=== PATIENT | female | born 1935 | race Two or more races ===

== ENCOUNTER → 2016-11-16 | Outpatient (CLI) | payer MEDICARE ==
[~2016-11-16] MED LIST: ASPI-482 PO; FELO10TA PO; IOHEXOL 180 MG/ML 10 ML VIAL. ONE; ISOS30TA4 PO; LATA2.5D3 EACHEYE; LEVO5TAB2 PO; LOSA1TAB17 PO; METO25TA9 PO; NAPR220C4 PO; POTA10TA5 PO; RANI150C PO; TIMO5DRO5 RIGHTEYE; ZOLP5TAB4 PO; methylPREDNISolone ACETATE 40 MG/ML VIAL. ONE; methylPREDNISolone ACETATE 80 MG/ML VIAL. ONE
--- NOTE | 2016-11-17 03:20 | PAIN ---
DATE OF SERVICE: 11/16/2016 INITIAL CONSULTATION CHIEF COMPLAINT: Upper back and left shoulder pain. HISTORY OF PRESENT ILLNESS: This is an 81-year-old female who presents with history of pain for many years, not a result of any specific injury or action that she is aware of, but increasing pain in the base of the neck and left shoulder, also left upper back radiating to the left side as well in the flank about the upper chest on the left side. The patient reports it is constant, sharp, stabbing, shooting, throbbing with intermittent in intensity, but always present, changes during the day with activity, worse with standing, walking, changing, twisting, using her upper extremities, also turning her neck far to the left side causes increased pain in the base of the neck and shoulder on the left side as well. The patient reports no specific symptoms on the right side, but also pain ____ in the low back which is a separate issue. The patient reports it wakes her from sleep, but only very rarely, does not affect her bowel or bladder control or ability to walk, but it is becoming more noticeable and uncomfortable with daily activities such as changing clothes, lifting items, cooking, standing and washing, etc. The patient has tried physical therapy and is currently enrolled in that, also doing some exercises at home which she feels did help by about 20%. She has had some epidural injections in 2008 or 2009 in ____, which she felt were quite helpful for her pain as well. The patient did have an MRI scan of the cervical and thoracic spine, cervical spine showing some spinal stenosis at T1-T2 with extrusion extending slightly above and below the intervertebral disk space, also with left lateral recess stenosis at this level, mild cord edema difficult to entirely exclude, also some mild spinal stenosis at C3 and C4. The patient rates her disability rate from 0 to 10, 10 being the worst, as 6 with family and home responsibilities and self-care, 7 with recreation and social activity, occupation and life support activities. The patient reports no radiation in the upper extremities and no weakness in the upper extremities related to the pain as well bilaterally. PAST MEDICAL HISTORY: Significant for hypertension, glaucoma, cataracts, pacemaker with a second-degree AV block, gastroesophageal reflux, arthritis. PREVIOUS SURGERIES: Include bilateral cataract extractions, pacemaker placement in 2010, right knee scope in 2000, benign tumor of the thigh removed in 2008. CURRENT MEDICATIONS: Include naproxen, timolol eyedrops, latanoprost, daily baby aspirin, Zantac, isosorbide, felodipine, zolpidem, levocetirizine, potassium, losartan and metoprolol. ALLERGIES: The patient is allergic to latex, also taking atgq-fxq-jfydywe Naprosyn. FAMILY HISTORY: Significant for no major medical problems or conditions that she is aware of. SOCIAL HISTORY: The patient does not smoke, does not use alcohol. She is , lives with her spouse in [place], [place]. REVIEW OF SYSTEMS: The patient's review of systems is positive for those items mentioned in the history of present illness. All systems reviewed and otherwise negative. It is complete, full and well documented on the patient's chart. PHYSICAL EXAMINATION: VITAL SIGNS: The patient's blood pressure is 170/75, pulse is 67, respirations 20, temperature is 98.2 degrees Fahrenheit, height is 5 feet 2 inches and weight is 114 pounds. GENERAL: The patient is awake, alert, oriented, appropriate, very pleasant demeanor. HEENT: Shows normocephalic, atraumatic. Extraocular movements are intact and symmetrical. The patient wears eye glasses. Oral cavity shows mucous membranes are moist and pink. Dentition is intact. NECK: Shows anterior throat supple without palpable lymphadenopathy noted. Swallow reflex is symmetrical. CHEST: Shows normal on inspection. Breath sounds are clear to auscultation bilaterally. HEART: Shows S1 and S2 clear. No murmurs auscultated. ABDOMEN: Soft, nontender, nondistended. No palpable organomegaly is noted. No rebound or guarding demonstrated. BACK: The patient's back shows spine grossly in midline, normal-appearing cervical lordotic curvature, thoracic kyphotic curvature and lumbar lordotic curvature. No previous bruises, lesions, rashes or scars are noted. Cervical paraspinous muscle shows some moderate tenderness with palpation only in the inferior aspect of the cervical paraspinous muscles, more on the left than the right, appears roughly symmetrical on inspection. No atrophy, hypertrophy, no radiation of pain with palpation. No trigger points in the trapezius musculature. Lateral trapezius is slightly more tender on the left than the right, but again symmetrical with comparison of right to left. Upper back shows normal thoracic kyphosis. The thoracic paraspinous muscle shows some moderate tenderness to palpation in the left rhomboid distribution of paraspinous muscles in the thoracic distribution, also in the superior and infrascapular regions moderate tenderness diffusely once again and significantly more tender in the inferior aspect of the scapular region in the posterior trapezius musculature on the left and none on the right. EXTREMITIES: The patient's upper extremities show deep tendon reflexes at 2+ in the biceps and triceps tendons. Motor exam is strong with short range air defense artillery strength rated at 5/5 as is biceps and triceps flexion. No deficits noted. Peripheral pulses are 2+, radial distribution. No peripheral edema is noted. No clubbing, no cyanosis. Upper extremities are warm and dry to touch, equal in color and appearance. Shoulder shrug is strong and intact with some minor pain reported with resistance on the left side but not the right without loss of strength. Abduction of the shoulder to 90 degrees, also tenderness in the posterior shoulder with resistance on the left side, but not the right, reaching above 90 degrees causes pain in the base of the shoulder and the base of the neck on the left side. IMPRESSION: 1. This is an 81-year-old female with a long history of many years of pain in the base of the neck, left shoulder and left upper back. 2. MRI scan as noted. 3. History of arthritis. 4. Hypertension. 5. AV block with pacemaker placement. PLAN: Options were discussed with the patient and the patient's son who accompanies her to the visit today. We discussed continued physical therapies, medication management and interventional techniques. She would like to pursue interventional techniques. We discussed a thoracic epidural steroid injection at the T1-T2 level using description as well as anatomical models to describe the procedure. The patient would like to proceed with this. Risks were then discussed including, but not limited to bleeding, infection, possibility of epidural hematoma, subsequent neurological compromise, dural puncture, headaches, spinal cord and/or nerve damage, side effects of steroid medication and poor results regarding pain control. The patient understands and wishes to proceed. The patient will return to the clinic in approximately 2 weeks for followup, was counseled on return appointment, activity level and side effects to be aware of. DIAGNOSIS: Thoracic radiculopathy with thoracic spinal stenosis. PROCEDURE: Thoracic epidural steroid injection, translaminar approach at the T1-T2 level using fluoroscopic guidance under sterile prep and drape using local anesthesia. Medications injected 120 mg of Depo-Medrol plus 5 mL of preservative-free normal saline and 2 mL of Isovue contrast. Condition at discharge is stable. The patient tolerated the procedure well, had no complications. SHADE SANCHEZ MD DR: SPARKLE/jorge JOB#: [id number] / [id number]
== END ==
LOC: PNCL 13:31
PROVIDERS: ATTEND Anesthesiology
DX: M48.04 Spinal stenosis, thoracic region (principal); M54.14 Radiculopathy, thoracic region; I10 Essential (primary) hypertension; M19.90 Unspecified osteoarthritis, unspecified site
CPT/HCPCS: 62321; J1030; J1040

== ENCOUNTER → 2016-12-08 | Outpatient (CLI) | payer MEDICARE ==
[~2016-12-08] MED LIST changes: +BUPIVACAINE MPF 0.25% 10 ML VIAL. ONE; -IOHEXOL 180 MG/ML 10 ML VIAL. ONE; -methylPREDNISolone ACETATE 80 MG/ML VIAL. ONE
--- NOTE | 2016-12-09 22:42 | PAIN ---
DATE OF SERVICE: 12/08/2016 DIAGNOSES: 1. Thoracic radiculopathy with thoracic spinal stenosis. 2. Myofascial pain. HISTORY OF PRESENT ILLNESS: The patient is an 81-year-old female who returns for followup status post thoracic epidural steroid injection x 1 on 07/17/2016, did very well with 90% improvement. The patient reports doing much better in the upper back, neck, and into her shoulder as well on the left side, the patient was very pleased with the progress, was increasing her activity with greater ease and comfort, sleeping well at night, not having any new motor or sensory deficits, no other complaints. The patient is very pleased, has chief complaint today of pain in the low back on the left side, which has been present for some time, but is much more noticeable now that her upper back and shoulders are feeling much better. The patient reports a stabbing pain like a digging knife-like pain in the left mid and low back. The patient reports it as 2 on a scale of 10; however, reports no new motor or sensory deficits, no radiation into the lower extremities or other complaints. The patient reports it is worse with standing and walking, again does not awaken her from sleep, but is becoming more noticeable now that her upper back and left shoulder are feeling much better. PHYSICAL EXAMINATION: VITAL SIGNS: Today, the patient's blood pressure is 147/76, pulse 65, respirations 16, temperature is 98.1 degrees Fahrenheit, and weight is 111 pounds. GENERAL: The patient is awake, alert, oriented, appropriate, very pleasant demeanor. HEENT: Head shows normocephalic, atraumatic. Extraocular movements are intact and symmetrical. The patient's oral cavity shows mucous membranes are moist and pink. Dentition is intact. NECK: Shows anterior throat supple without palpable lymphadenopathy noted. Swallow reflex is symmetrical. CHEST: Shows normal on inspection. Breath sounds are clear to auscultation bilaterally. HEART: Shows S1 and S2 clear. ABDOMEN: Soft, nontender, nondistended. BACK: Shows spine grossly in midline. Very minimal tenderness with palpation in the inferior aspect of the cervical paraspinous musculature as well as superior medial and lateral trapezius, both on the left and the right. The patient shows good rotational motion into the upper cervical and thoracic spines, both lateral rotation, extension and flexion without difficulty. Examination of the patient's lumbar spine and lower thoracic distribution shows some mild hypertrophy of the paraspinous musculature on the left compared to the right. From the low thoracic distribution into the upper lumbar distribution on the left side, very firm, very tender rope-like musculature in the paraspinous distribution on the left only. Right side is supple, firm, but nontender. There are significant tender trigger points on the left side in the low thoracic and the upper lumbar, very tender to palpation, but without significant radiation. EXTREMITIES: The patient's upper extremities show deep tendon reflexes 2+ in the biceps and triceps tendons. Motor exam is strong with butcher all round strength rated at 5/5 at is biceps and triceps flexion. Options were discussed with the patient. The patient's old chart was reviewed as her current medication regimen updated, current review of systems updated today as well. We will proceed with trigger point injections of the left thoracic paraspinous musculature and the lumbar paraspinous musculature. Risks were discussed including but not limited to bleeding, infection, possibility of intravascular injection sequelae, pneumothorax, side effects of steroid medications, spread of local anesthetic and numbness as well as poor results regarding pain control. The patient understands and wishes to proceed. The patient will return to clinic in approximately 2 weeks or as necessary, would like to call for next appointment if she is doing much better. Also, encouraged the patient to maintain stretching and strengthening exercises, heat application to the areas of the tight musculature on the left side, as well as side effects to be aware of with the injection today. The patient understands and agrees. DIAGNOSES: 1. Myofascial pain. 2. Thoracic radiculopathy with thoracic spinal stenosis. PROCEDURE: Trigger point injections of the left thoracic paraspinous musculature and left lumbar paraspinous musculature using a sterile prep and drape. MEDICATIONS INJECTED: Total of 40 mg Depo-Medrol plus 4 mL of 0.25% bupivacaine. CONDITION AT DISCHARGE: Stable. The patient tolerated procedure well, had no complications. SHADE SANCHEZ MD DR: SPARKLE/jorge JOB#: [id number] / [id number]
== END | disposition home or self-care (01) ==
LOC: PNCL 08:08
PROVIDERS: ATTEND Anesthesiology
DX: M48.04 Spinal stenosis, thoracic region (principal); M54.14 Radiculopathy, thoracic region
CPT/HCPCS: 20552; J1030; J3490

== ENCOUNTER → 2018-07-03 | Outpatient (CLI) | payer MEDICARE ==
[~2018-07-03] MED LIST changes: -BUPIVACAINE MPF 0.25% 10 ML VIAL. ONE; -LOSA1TAB17 PO; +LOSA1TAB22 PO; +METO-239 PO; -METO25TA9 PO; +POTA10TA12 PO; -POTA10TA5 PO; -ZOLP5TAB4 PO; +ZOLP5TAB5 PO; -methylPREDNISolone ACETATE 40 MG/ML VIAL. ONE
--- NOTE | 2018-07-03 11:21 | CARD ---
MR#: [id number] Date of Study: 07/03/2018 Ordering Physician: LOUISE YOUNG, Referring Physician: LOUISE YOUNG, Andrew: SAMEERA Uriarte APPROVED REPORT EXAM: Two-dimensional and M-mode echocardiogram with Doppler and color Doppler. Other Information Quality : GoodHR: 65bpm INDICATION AV Block 2nd Degree RISK FACTORS Hypertension 2D DIMENSIONS Left Atrium(2D)2.2 (1.6-4.0cm)IVSd1.0 (0.7-1.1cm) Aortic Root(2D)2.4 (2.0-3.7cm)LVDd4.2 (3.9-5.9cm) LVOT Diameter2.0 (1.8-2.4cm)PWd1.1 (0.7-1.1cm) LVDs2.9 (2.5-4.0cm)FS (%) 29.6 % SV44.3 mlLVEF(%)57.1 (>50%) Aortic Valve AoV Peak Moisés.131.0cm/sAoV VTI32.5cm AO Peak GR.6.9mmHgLVOT Peak Moisés.80.7cm/s LVOT VTI 21.74cmAO Mean GR.4mmHg JUAN A (VMAX)1.19mq6KTO (VTI)2.18cm2 AI P 1/2 Hndg743pi Mitral Valve MV E Cqlhtmyt34.0cm/sMV E Peak Gr.94mmHg MV DECEL [id number] A Rymxfmdg94.8cm/s MV PUA45kkL/A Ratio1.0 MVA (PHT)3.63cm2 TDI E/Lateral E'10.7E/Medial E'16.5 Pulmonary Valve PV Peak Kpohshld59.9cm/sPV Peak Grad.3mmHg Tricuspid Valve TR P. Tskmifob868dk/sTR Peak Gr.33mmHg LEFT VENTRICLE The left ventricle is normal size. There is normal left ventricular wall thickness. Proximal septal t hickening is noted. The left ventricular systolic function is normal and the ejection fraction is wit hin normal range. EF 55% There is normal LV segmental wall motion. The left ventricular diastolic fun ction and filling is normal for age. RIGHT VENTRICLE The right ventricle is normal size. The right ventricular systolic function is normal. There is a pac ing lead noted in the RA/RV. ATRIA The left atrium size is normal. The right atrium size is normal. The interatrial septum is intact wit h no evidence for an atrial septal defect or patent foramen ovale as noted on 2-D or Doppler imaging. AORTIC VALVE The aortic valve is thickened but opens well. Doppler and Color Flow revealed trace aortic regurgitat ion. There is no significant aortic valvular stenosis. There is no aortic valvular vegetation. MITRAL VALVE The mitral valve is thickened but opens well. There is no evidence of mitral valve prolapse. There is no mitral valve stenosis. Doppler and Color-flow revealed mild mitral regurgitation. TRICUSPID VALVE The tricuspid valve is not well visualized. Doppler and Color Flow revealed mild tricuspid regurgitat ion. There is no tricuspid valve prolapse or vegetation. There is no tricuspid valve stenosis. PULMONIC VALVE The pulmonic valve is not well visualized. Doppler and Color Flow revealed trace to mild pulmonic joseph vular regurgitation. There is no pulmonic valvular stenosis. GREAT VESSELS The aortic root is normal in size. The IVC is normal in size and collapses >50% with inspiration. PERICARDIAL EFFUSION There is no pleural effusion. There is no evidence of significant pericardial effusion. Critical Notification Critical Value: No <Conclusion> The left ventricular systolic function is normal and the ejection fraction is within normal range. EF 55% There is normal LV segmental wall motion. There is a pacing lead noted in the RA/RV. Signed by : Irineo Hennessy, Electronically Approved : 07/03/2018 11:20:49
== END | disposition home or self-care (01) ==
LOC: ECHO 10:02
PROVIDERS: ATTEND Internal Medicine Cardiovascular Disease
DX: I44.1 Atrioventricular block, second degree (principal); I08.1 Rheumatic disorders of both mitral and tricuspid valves; I10 Essential (primary) hypertension; I25.10 Atherosclerotic heart disease of native coronary artery without angina pectoris
CPT/HCPCS: 93306

== ENCOUNTER → 2019-11-05 | Outpatient (CLI) | payer MEDICARE ==
[~2019-11-05] MED LIST changes: -FELO10TA PO; +FELO10TA4 PO
--- NOTE | 2019-11-05 10:06 | CARD ---
MR#: [id number] Date of Study: 11/05/2019 Ordering Physician: LOUISE YOUNG, Referring Physician: LOUISE YOUNG, Tech: Norma Abadton APPROVED REPORT EXAM: Two-dimensional and M-mode echocardiogram with Doppler and color Doppler. Other Information Quality : AverageHR: 61bpm Rhythm : Pacemaker INDICATION Arrhythmia Surgery/Intervention Pacemaker: Date: 2011 RISK FACTORS Hypertension 2D DIMENSIONS RVDd2.5 (2.9-3.5cm)Left Atrium(2D)2.7 (1.6-4.0cm) IVSd0.9 (0.7-1.1cm)Aortic Root(2D)2.3 (2.0-3.7cm) LVDd4.1 (3.9-5.9cm)LVOT Diameter1.8 (1.8-2.4cm) PWd0.8 (0.7-1.1cm)LVDs2.5 (2.5-4.0cm) FS (%) 39.3 %SV53.4 ml LVEF(%)70.2 (>50%) Aortic Valve AoV Peak Moisés.129.9cm/sAoV VTI29.6cm AO Peak GR.6.7mmHgLVOT Peak Moisés.79.7cm/s LVOT VTI 21.43cmAO Mean GR.4mmHg JUAN A (VMAX)1.01zm6LOV (VTI)1.94cm2 AI P 1/2 Zbze517vf Mitral Valve MV E Poscbxig12.4cm/sMV E Peak Gr.76mmHg MV DECEL AVSX070ibIA A Dguhxpdq61.7cm/s MV E Mean Gr.2mmHgMV YKX90hk E/A Ratio1.2MVA (PHT)3.90cm2 TDI E/Lateral E'13.3E/Medial E'16.4 Pulmonary Valve PV Peak Nyylbylf38.1cm/sPV Peak Grad.3mmHg Tricuspid Valve TR P. Qtrerlge430ok/sRAP UNPDONHR5smAa TR Peak Gr.53vyDlYWFE99zsFx Pulmonary Vein S1 Gzgzapuw05.0cm/sD2 Kjtpygyc62.2cm/s PVa rchdbnjp549vbmj LEFT VENTRICLE The left ventricle is normal size. There is normal left ventricular wall thickness. The left ventricu lar systolic function is normal. The Ejection Fraction is 55-60%. There is normal LV segmental wall m otion. Transmitral Doppler flow pattern is Grade II-pseudonormal filling dynamics. RIGHT VENTRICLE The right ventricle is normal size. There is normal right ventricular wall thickness. The right ventr icular systolic function is normal. There is a pacemaker lead in the right ventricle. ATRIA The left atrium size is normal. The right atrium size is normal. There is a pacemaker lead seen in th e right atrium. The interatrial septum is intact with no evidence for an atrial septal defect or doll nt foramen ovale as noted on 2-D or Doppler imaging. AORTIC VALVE The aortic valve is thickened but opens well. Doppler and Color Flow revealed mild aortic regurgitati on. There is no significant aortic valvular stenosis. MITRAL VALVE The mitral valve is normal in structure and function. There is no evidence of mitral valve prolapse. There is no mitral valve stenosis. Doppler and Color-flow revealed trace to mild mitral regurgitation . TRICUSPID VALVE The tricuspid valve is normal in structure and function. Doppler and Color Flow revealed mild tricusp id regurgitation with an estimated PAP of 32 mmHg. There is no tricuspid valve stenosis. PULMONIC VALVE The pulmonic valve is not well visualized. Doppler and Color Flow revealed trace pulmonic valvular re gurgitation. GREAT VESSELS The aortic root is normal in size. The IVC is normal in size and collapses >50% with inspiration. PERICARDIAL EFFUSION There is no evidence of significant pericardial effusion. Critical Notification Critical Value: No <Conclusion> The left ventricular systolic function is normal. The Ejection Fraction is 55-60%. There is normal LV segmental wall motion. There is a pacemaker lead in the right atrium and ventricle. Mild aortic regurgitation. Trace to mild mitral regurgitation. Mild tricuspid regurgitation with an estimated PAP of 32 mmHg. There is no evidence of significant pericardial effusion. Signed by : Louise Young, Electronically Approved : 11/05/2019 10:06:19
== END | disposition home or self-care (01) ==
LOC: ECHO 08:19
PROVIDERS: ATTEND Internal Medicine Cardiovascular Disease
DX: I08.3 Combined rheumatic disorders of mitral, aortic and tricuspid valves (principal); I44.1 Atrioventricular block, second degree
CPT/HCPCS: 93306

== ENCOUNTER → 2020-11-04 | Outpatient (CLI) | payer MEDICARE ==
[~2020-11-04] MED LIST changes: -ISOS30TA4 PO; +ISOS30TA68 PO
--- NOTE | 2020-11-11 16:18 | CARD ---
MR#: [id number] Date of Study: 11/04/2020 Ordering Physician: LOUISE YOUNG, Referring Physician: LOUISE YOUNG Tech: Katelyn French [facility] APPROVED REPORT EXAM: Two-dimensional and M-mode echocardiogram with Doppler and color Doppler. Other Information Quality : GoodHR: 66bpm Rhythm : NSR INDICATION Chest Pain Surgery/Intervention ICD/Pacemaker: 2D DIMENSIONS RVDd2.7 (2.9-3.5cm)Left Atrium(2D)2.7 (1.6-4.0cm) IVSd0.8 (0.7-1.1cm)Aortic Root(2D)2.4 (2.0-3.7cm) LVDd3.7 (3.9-5.9cm)LVOT Diameter2.0 (1.8-2.4cm) PWd0.6 (0.7-1.1cm)LVDs1.5 (2.5-4.0cm) FS (%) 60.0 %SV53.9 ml LVEF(%)89.9 (>50%) Aortic Valve AoV Peak Moisés.157.1cm/sAoV VTI36.9cm AO Peak GR.9.9mmHgLVOT Peak Moisés.96.8cm/s LVOT VTI 24.55cmAO Mean GR.6mmHg JUAN A (VMAX)1.19xy5IFM (VTI)2.12cm2 Mitral Valve MV E Nawneaun855.4cm/sMV DECEL GLWS073ub MV SXU22eeSUD (PHT)3.59cm2 TDI E/Lateral E'11.8E/Medial E'15.2 Pulmonary Valve PV Peak Hbgaudht223.2cm/sPV Peak Grad.5mmHg Tricuspid Valve TR P. Scfgwsxc598lz/sTR Peak Gr.35mmHg LEFT VENTRICLE The left ventricle is normal size. There is mild concentric left ventricular hypertrophy. The left ve ntricular systolic function is normal and the ejection fraction is within normal range. Estimated eje ction fraction 60-65%. There is normal LV segmental wall motion. The left ventricular diastolic funct ion and filling is normal for age. RIGHT VENTRICLE The right ventricle is normal size. There is normal right ventricular wall thickness. The right ventr icular systolic function is normal. ATRIA The left atrium size is normal. The right atrium size is normal. The interatrial septum is intact wit h no evidence for an atrial septal defect or patent foramen ovale as noted on 2-D or Doppler imaging. AORTIC VALVE The aortic valve is normal in structure and function. Doppler and Color Flow revealed trace aortic re gurgitation. There is no significant aortic valvular stenosis. MITRAL VALVE The mitral valve is normal in structure and function. There is no evidence of mitral valve prolapse. There is no mitral valve stenosis. Doppler and Color-flow revealed mild regurgitation. TRICUSPID VALVE The tricuspid valve is normal in structure and function. Doppler and Color Flow revealed mild tricusp id regurgitation. Estimated 37 mmHg. There is no tricuspid valve stenosis. PULMONIC VALVE Doppler and Color Flow revealed mild pulmonic valvular regurgitation. There is no pulmonic valvular s tenosis. GREAT VESSELS The aortic root is normal in size. The ascending aorta is normal in size. The IVC is normal in size a nd collapses >50% with inspiration. PERICARDIAL EFFUSION There is no evidence of significant pericardial effusion. Critical Notification Critical Value: No <Conclusion> The left ventricular systolic function is normal and the ejection fraction is within normal range. E stimated ejection fraction 60-65%. There is normal LV segmental wall motion. Doppler and Color-flow revealed mild regurgitation. Signed by : Irineo Hennessy, Electronically Approved : 11/11/2020 16:17:53
== END ==
LOC: ECHO 12:44
PROVIDERS: ATTEND Internal Medicine Cardiovascular Disease
DX: I08.8 Other rheumatic multiple valve diseases (principal)
CPT/HCPCS: 93306

== ENCOUNTER 2021-06-06 09:00 | Day surgery (SDC) | payer MEDICARE ==
[2021-06-06] VITALS (10 sets, daily range): BP systolic 107–154; BP diastolic 58–85
[~2021-06-06] VITALS: Ht 157.5 cm; Wt 49.7 kg
[2021-06-06] MEDS ORDERED: AMLO-187 PO (10:06)
[2021-06-06] MEDS ORDERED: FAMO-63 PO (10:06)
[2021-06-06] MEDS ORDERED: LIDOCAINE 1% PF 2 ML VIAL. ONE (10:54)
[2021-06-06] MEDS ORDERED: IODIXANOL 320 MG/ML 100 ML VIAL. ONE (10:54)
[2021-06-06] MEDS ORDERED: fentaNYL PF VIAL 100 MCG/2 ML VIAL ONE (11:04)
[2021-06-06] MEDS ORDERED: MIDAZOLAM HCL/PF 2 MG/2 ML VIAL. ONE (11:04)
[2021-06-06] MEDS ORDERED: HEPARIN for IV BOLUS 10,000 UNIT/10 ML VIAL. ONE (11:04)
[2021-06-06] MEDS ORDERED: VERAPAMIL 5 MG/2 ML VIAL. ONE (11:04)
[2021-06-06] MEDS ORDERED: NITROGLYCERIN 200 MCG/2 ML SYRINGE FOR CATH/VASC LAB. ONE (11:04)
[2021-06-06] MEDS ORDERED: LIDOCAINE 1% Multi-Dose 20 ML VIAL. ONE (11:20)
--- NOTE | 2021-06-06 11:44 | PDOC ---
MODERATE SEDATION ASSESSMENT RISKS/ALTERNATIVES Risks/Alternatives Risks and alternatives of this type of sedation and procedure discussed with: RISK/ALTERNATIVES: Patient H & P ON CHART H & P H & P on chart and reviewed for co-morbid conditions and appropriate labs. H&P ON CHART: Yes STATUS PREG STATUS ASSESSED: N/A MEDS/ALLERGIES REVIEWED Meds/Allergies Reviewed Medications and Allergies including time and route of recently administered narcotics and sedatives. MEDS/ALLERGIES REVIEWED: Yes ASA RATING ASA RATING: II AIRWAY ASSESSMENT Airway Assessment Airway patency, oral function limitations, presence of caps, crowns, dentures, partials, and ability to extend neck assessed. AIRWAY ASSESSMENT: Yes MALLAMPATI SCORE MALLAMPATI SCORE: II PRE-SEDATION ASSESSMENT PRE-SEDATION ASSESSMENT: Yes LOUISE YOUNG MD Jun 06, 2021 11:44
[2021-06-06] MEDS ORDERED: NITROGLYCERIN 200 MCG/2 ML SYRINGE FOR CATH/VASC LAB. IART ONE (11:45)
[2021-06-06] MEDS ORDERED: LIDOCAINE 1% Multi-Dose 20 ML VIAL. INJ ONE (11:45)
[2021-06-06] MEDS ORDERED: IODIXANOL 320 MG/ML 100 ML VIAL. IART ONE (11:45)
[2021-06-06] MEDS ORDERED: MIDAZOLAM HCL/PF 2 MG/2 ML VIAL. IV ONE (11:45)
[2021-06-06] MEDS ORDERED: IV 1/2 NORMAL SALINE 1,000 ML IV SCH (11:45)
[2021-06-06] MEDS ORDERED: HEPARIN for IV BOLUS 10,000 UNIT/10 ML VIAL. IART ONE (11:45)
[2021-06-06] MEDS ORDERED: VERAPAMIL 5 MG/2 ML VIAL. IART ONE (11:45)
[2021-06-06] MEDS ORDERED: LIDOCAINE 1% PF 2 ML VIAL. INJ ONE (11:45)
[2021-06-06] MEDS ORDERED: fentaNYL PF VIAL 100 MCG/2 ML VIAL IV ONE (11:45)
--- NOTE | 2021-06-06 13:02 | CARD ---
MR#: [id number] Date of Study: 06/06/2021 Ordering Physician: LOUISE VITALE, Referring Physician: LOUISE VITALE Tech: RT Jt(R) APPROVED REPORT Technologist: RT Jt(R) Nurse: Sabrina Wayne RN Procedure(s) performed: Left heart catheterization, selective coronary angiography and left ventricul ography MODERATE SEDATION TIME: 34 MINS FLUORO TIME: 4.3 MIN DOSE: 14.9 GYCM2 CONTRAST: 89CC VISI INDICATION The indication(s) include : non-STEMI . [facility] Clinical Frailty Scale [facility] Clinical Frailty Scale: Mildly Frail Heart Failure Heart Failure: No CASE TECHNIQUE IV conscious sedation was used throughout procedure with appropriate monitoring and was performed in the presence of a registered nurse who was an independent trained observer other than the physician p erforming the procedure. During this case, Fluoroscopy and low osmolar contrast were used for imaging . Specimen(s) Removed: No Estimated Blood loss: 15 cc's. PROCEDURE NARRATIVE After explaining the risks, benefits and alternative options, informed consent was obtained from krystle ent. Patient was brought to the cardiac Orthopedic Designer and right wrist was prepped and draped in the usual fashion after confirming a positive modified Roby's test. Arterial access was obtained in the [facility] radial artery and a 6 Jordanian sheath was inserted. 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 Hence a decision was made to acces s patient's right common femoral artery. 10 cc of 2% lidocaine was infiltrated into the skin and sub cutaneous tissues of previously prepped and draped right groin. Arterial access was obtained in the right common femoral artery and a 6 Jordanian sheath was inserted. 6 Jordanian JL4 6 Jordanian JR4 catheters were used to perform selective angiography of the left and right coronary arteries. 6 Jordanian pigtail catheter was used to perform left ventriculography. Patient tolerated the procedure well. Hemostas is was achieved using TR band in right wrist and Angio-Seal in the right groin.. There were no immed iate complications. The following findings were noted. FINDINGS 1. Hemodynamics: Left ventricular end-diastolic pressure of mmHg. No pullback gradient across the aortic valve. 2. Left ventriculography: Normal left ventricle systolic function with ejection fraction estimated at 60%. No significant mitral regurgitation seen. 3. Coronary angiography: a. The left main coronary artery arose from the left sinus of Valsalva, gave rise to the left anteri or descending and left circumflex arteries and did not show any significant stenosis. b. The left anterior descending artery did not show any significant stenosis. c. The left circumflex artery did not show any significant stenosis. d. The right coronary artery was a large and dominant vessel arising from the right sinus of Valsalv a that did showed 50% stenosis involving the mid segment of the posterior descending branch. Conclusion 1. Nonobstructive coronary artery disease involving the posterior descending branch of right coronar y artery. No lesions needing intervention were noted. 2, normal left ventricular systolic function with ejection fraction estimated at 60%. Recommendations Patient's non-STEMI is most probably type II/demand ischemia. Recommend medical management. Signed by : Louise Vitale, Electronically Approved : 06/06/2021 13:01:54
--- NOTE | 2021-06-06 14:33 | NUR ---
Discharge Note: ELLE TATUM Discharge instructions and discharge home medications reviewed with Patient and Francis(son) and a copy given. All questions have been answered and understanding verbalized. The following instructions and handouts were given: Radial & Groin site care, moderate sedation. Discontinued lines and drains: Right and Left AC IV sites dc'd, tip intact, and bandage applied. Patient discharged to home with son via personal vehicle.
== END 2021-06-06 14:23 | disposition home or self-care (01) ==
LOC: CCL 09:00 → UNDOADMIN 09:00 → SURHIP 09:00 → CCL 14:23
PROVIDERS: ATTEND Family Medicine
DX: R07.9 Chest pain, unspecified (principal); I25.10 Atherosclerotic heart disease of native coronary artery without angina pectoris; I10 Essential (primary) hypertension; H40.9 Unspecified glaucoma; I25.2 Old myocardial infarction; M19.90 Unspecified osteoarthritis, unspecified site; Z79.82 Long term (current) use of aspirin; Z79.899 Other long term (current) drug therapy; Z95.0 Presence of cardiac pacemaker; Z98.890 Other specified postprocedural states
CPT/HCPCS: 93458; 99152; 99153; C1760; C1769; C1894; J1644; J2250; J3010; J3490; Q9967; 75710; G0269

== ENCOUNTER 2021-07-05 06:59 | Outpatient (CLI) | payer MEDICARE ==
[~2021-07-05] VITALS: Ht 157.5 cm; Wt 51.0 kg
[2021-07-05] VITALS (11 sets, daily range): BP systolic 103–145; BP diastolic 56–65
[~2021-07-05 06:59] MED LIST changes: +AMLO-187 PO; +FAMO-63 PO
[2021-07-05 07:33] LABS: HEMATOCRIT 35.3 % (36.0-47.0); HEMOGLOBIN 12.1 g/dL (12.0-15.5); RED BLOOD COUNT 4.09 x10^6/uL (3.50-5.40); RED CELL DISTRIBUTION WIDTH 13.4 % (11.5-14.5); WHITE BLOOD COUNT 7.2 x10^3/uL (4.0-11.0)
[2021-07-05 07:40] LABS: CALCIUM 9.1 mg/dL (8.5-10.1); CREATININE 0.9 mg/dL (0.6-1.0); GFR 59.5; POTASSIUM 3.9 mmol/L (3.5-5.1)
[2021-07-05] MEDS ORDERED: MIDAZOLAM HCL/PF 2 MG/2 ML VIAL. ONE (07:56)
[2021-07-05] MEDS ORDERED: fentaNYL PF VIAL 100 MCG/2 ML VIAL ONE (07:57)
[2021-07-05] MEDS ORDERED: CIME200T18 PO (08:05)
[2021-07-05] MEDS ORDERED: LOSA1TAB25 PO (08:05)
[2021-07-05] MEDS ORDERED: ceFAZolin SODIUM IV Push 1 GM VIAL. IVP ONE ×2 (08:15→08:20)
[2021-07-05] MEDS ORDERED: fentaNYL PF VIAL 100 MCG/2 ML VIAL IV ONE (08:15)
[2021-07-05] MEDS ORDERED: ceFAZolin SODIUM 1 GM in IV NORMAL SALINE 100ML 100 ML IRR ONE (08:15)
[2021-07-05] MEDS ORDERED: LIDOCAINE 2%/EPI 1:100,000 20 ML VIAL. IJ ONE (08:15)
[2021-07-05] MEDS ORDERED: MIDAZOLAM HCL/PF 2 MG/2 ML VIAL. IV ONE (08:15)
[2021-07-05] MEDS ORDERED: LIDOCAINE 1% Multi-Dose 20 ML VIAL. ONE (08:28)
--- NOTE | 2021-07-05 09:14 | PDOC ---
MODERATE SEDATION ASSESSMENT RISKS/ALTERNATIVES Risks/Alternatives Risks and alternatives of this type of sedation and procedure discussed with: RISK/ALTERNATIVES: Patient H & P ON CHART H & P H & P on chart and reviewed for co-morbid conditions and appropriate labs. H&P ON CHART: Yes STATUS PREG STATUS ASSESSED: N/A MEDS/ALLERGIES REVIEWED Meds/Allergies Reviewed Medications and Allergies including time and route of recently administered narcotics and sedatives. MEDS/ALLERGIES REVIEWED: Yes ASA RATING ASA RATING: III AIRWAY ASSESSMENT Airway Assessment Airway patency, oral function limitations, presence of caps, crowns, dentures, partials, and ability to extend neck assessed. AIRWAY ASSESSMENT: Yes MALLAMPATI SCORE MALLAMPATI SCORE: II PRE-SEDATION ASSESSMENT PRE-SEDATION ASSESSMENT: Yes LOUISE YOUNG MD Jul 05, 2021 09:14
--- NOTE | 2021-07-05 09:28 | CARD ---
MR#: [id number] Date of Study: 07/05/2021 Ordering Physician: LOUISE VITALE, Referring Physician: LOUISE VITALE, Tech: APPROVED REPORT PROCEDURES Medtronic dual-chamber permanent pacemaker generator change MODERATE SEDATION TIME: 35MIN. FLUORO TIME: 0.0 MIN DOSE: 0.02 GYCM2 INDICATIONS Sick sinus syndrome s/p permanent pacemaker implantation presenting with battery depletion PROCEDURE After explaining the risks, benefits, and alternative options, informed consent was obtained from the patient. The patient was brought to the cardiac catheterization lab and the left chest and shoulder were prepp ed and draped in a sterile manner. IV conscious sedation was used throughout procedure with appropriate monitoring and was performed in the presence of a registered nurse who was an independent trained observer other than the physician p erforming the procedure. Specimen(s) Removed: No Estimated Blood loss: 5 cc's. 17 cc of 2% lidocaine was infiltrated into the skin and subcutaneous tissues for local anesthesia. A n incision was made over the previous scar in the left infraclavicular fossa and using blunt dissecti on and cautery, the pocket was opened, the capsule exposed and opened and the previously placed gener ator removed from the pocket. The leads were detached from the generator, interrogated and found to be functioning well and will be attached to a new Medtronic dual-chamber permanent pacemaker generato r model W3 DR 01, serial number [id number]. This was placed in the pocket that was subsequently kei sed in 3 layers. Hemostasis was secured. The right atrial lead showed pacing impedance of 380 ohms and a threshold of 0.75 V. The right ventricular lead showed impedance of 418 ohms and a threshold o f 1.25 V. Patient tolerated the procedure well. There were no immediate complications CONCLUSION Successful Medtronic dual-chamber permanent pacemaker generator change for battery depletion in a pat ient with history of sick sinus syndrome Signed by : Louise Vitale, Electronically Approved : 07/05/2021 09:27:55
--- NOTE | 2021-07-05 11:40 | NUR ---
Discharge Note: STACY TATUM Discharge instructions and discharge home medications reviewed with Patient and a copy given. All questions have been answered and understanding verbalized. The following instructions and handouts were given: MODERATE SEDATION AND PACEMAKER BATTERY CHANGE. Discontinued RIGHT PERIPHERAL IV, NO COMPLICATIONS. LEFT CHEST DRESSING CLEAN, DRY AND INTACT. Patient discharged to HOME VIA WHEELCHAIR, ACCOMPANIED BY HER SON AND RN.
== END 2021-07-05 11:40 | disposition home or self-care (01) ==
LOC: CCL 06:59
PROVIDERS: ATTEND Internal Medicine Cardiovascular Disease
DX: Z45.010 Encounter for checking and testing of cardiac pacemaker pulse generator [battery] (principal); I49.5 Sick sinus syndrome; I25.10 Atherosclerotic heart disease of native coronary artery without angina pectoris; I10 Essential (primary) hypertension; K21.9 Gastro-esophageal reflux disease without esophagitis; M19.90 Unspecified osteoarthritis, unspecified site; Z79.82 Long term (current) use of aspirin; Z79.899 Other long term (current) drug therapy; Z98.890 Other specified postprocedural states; Z91.040 Latex allergy status; Z88.8 Allergy status to other drugs, medicaments and biological substances
CPT/HCPCS: 33228; 36415; 80048; 85027; 99152; 99153; C1785; J0690; J2250; J3010; J3490; 33213

== ENCOUNTER → 2022-03-01 | Outpatient (CLI) | payer MEDICARE ==
[2021-07-05 11:30] VITALS: BP 127/63
[~2022-03-01] MED LIST changes: +CIME200T18 PO; +LOSA1TAB25 PO
--- NOTE | 2022-03-01 16:22 | CARD ---
MR#: [id number] Date of Study: 03/01/2022 Ordering Physician: LOUISE YOUNG, Referring Physician: Andrew LOYD: Pablito Pitts [facility] [[email or web address]] APPROVED REPORT EXAM: Two-dimensional and M-mode echocardiogram with Doppler and color Doppler. Other Information Quality : GoodHR: 66bpm Rhythm : NSR INDICATION Cardiac Disease: CAD Surgery/Intervention Pacemaker: 2D DIMENSIONS Left Atrium(2D)3.0 (1.6-4.0cm)IVSd1.0 (0.7-1.1cm) Aortic Root(2D)2.5 (2.0-3.7cm)LVDd3.8 (3.9-5.9cm) LVOT Diameter2.2 (1.8-2.4cm)PWd1.0 (0.7-1.1cm) LA Efxjdp81 (18-58mL)LVDs2.0 (2.5-4.0cm) FS (%) 46.9 %SV49.1 ml Aortic Valve AoV Peak Moisés.150.9cm/sAoV VTI38.1cm AO Peak GR.9.1mmHgLVOT Peak Moisés.97.8cm/s LVOT VTI 23.42cmAO Mean GR.5mmHg JUAN A (VMAX)1.52uv3CXW (VTI)2.24cm2 AI P 1/2 Begl687nd Mitral Valve MV E Xxbbeujn583.0cm/sMV DECEL QALP706fy MV A Zvynzsus26.6cm/sMV [id number] E/A Ratio1.2MVA (PHT)3.90cm2 TDI E/Lateral E'15.9E/Medial E'20.0 Pulmonary Valve PV Peak Vzqjzjil15.8cm/sPV Peak Grad.2mmHg Tricuspid Valve TR P. Kcjktfyz984sz/sTR Peak Gr.32mmHg Pulmonary Vein S1 Lmanqxem82.5cm/sD2 Gcrpsgui28.8cm/s LEFT VENTRICLE The left ventricle is normal size. There is normal left ventricular wall thickness. The left ventricu lar systolic function is normal. LV ejection fraction of 55 to 60%. There is normal LV segmental wal l motion. Transmitral Doppler flow pattern is Grade II-pseudonormal filling dynamics. No left ventric le thrombus noted on this study. There is no ventricular septal defect visualized. There is no left v entricular aneurysm. There is no mass noted in the left ventricle. RIGHT VENTRICLE The right ventricle is normal size. There is normal right ventricular wall thickness. The right ventr icular systolic function is normal. ATRIA The left atrium is mildly dilated. The right atrium size is normal. The interatrial septum is intact with no evidence for an atrial septal defect or patent foramen ovale as noted on 2-D or Doppler imagi ng. AORTIC VALVE The aortic valve is mildly sclerotic. The aortic valve is trileaflet. Doppler and Color Flow revealed trace to mild aortic regurgitation. There is no significant aortic valvular stenosis. There is no ao rtic valvular vegetation. MITRAL VALVE The mitral valve is thickened but opens well. There is no evidence of mitral valve prolapse. There is no mitral valve stenosis. Doppler and Color-flow revealed mild mitral regurgitation. TRICUSPID VALVE The tricuspid valve is normal in structure and function. Doppler and Color Flow revealed mild to mode rate tricuspid regurgitation. The PA pressure was estimated at 38 mmHg. There is no tricuspid valve p rolapse or vegetation. There is no tricuspid valve stenosis. PULMONIC VALVE The pulmonary valve is normal in structure and function. Doppler and Color Flow revealed no pulmonic valvular regurgitation. There is no pulmonic valvular stenosis. GREAT VESSELS The aortic root is normal in size. The ascending aorta is normal in size. The pulmonary artery is nor mal. The IVC is normal in size and collapses >50% with inspiration. PERICARDIAL EFFUSION There is no pleural effusion. There is no evidence of significant pericardial effusion. Critical Notification Critical Value: No <Conclusion> The left ventricle is normal size. The left ventricular systolic function is normal. LV ejection fraction of 55 to 60%. Doppler and Color Flow revealed trace to mild aortic regurgitation. There is no significant aortic valvular stenosis. Doppler and Color-flow revealed mild mitral regurgitation. Doppler and Color Flow revealed mild to moderate tricuspid regurgitation. The PA pressure was estimated at 38 mmHg. Signed by : Jacques Pinzon MD Electronically Approved : 03/01/2022 16:21:46
== END ==
LOC: ECHO 09:36
PROVIDERS: ATTEND Internal Medicine Cardiovascular Disease
DX: I08.3 Combined rheumatic disorders of mitral, aortic and tricuspid valves (principal); I44.1 Atrioventricular block, second degree
CPT/HCPCS: 93306; C8929